=== PATIENT | male | born 1965 | race Caucasian/White ===

== ENCOUNTER 2024-08-01 08:22 | Outpatient (REF) | payer OTHER, SELFPAY ==
--- NOTE | ~2024-08-01 | XR_ITS ---
EXAMINATION: XR HIP 1 VIEW RIGHT WITH PELVIS HISTORY: M25.551 - Pain in right hip COMPARISON: There are no prior studies available for comparison. FINDINGS: A single AP view of the pelvis and two views of the right hip are submitted. Osseous mineralization is normal. There is no fracture or dislocation. The joint space is maintained. The soft tissues are unremarkable. XR/XR hip RT w PEL1V IMPRESSION: Unremarkable examination of the right hip. Electronically signed by: Tevin David MD 08/01/2024 10:08 AM EDT
== END 2024-08-01 08:23 | disposition home or self-care (01) ==
LOC: HO.HMGCX 08:22
PROVIDERS: Visit Provider Physician Assistant Medical
DX: M54.31 Sciatica, right side (principal); M25.551 Pain in right hip; M53.3 Sacrococcygeal disorders, not elsewhere classified
CPT/HCPCS: 73502; 96372; 99212; J1885

== ENCOUNTER 2024-08-01 08:22 | Outpatient (AMB) | payer OTHER, SELFPAY ==
[2024-08-01 09:14] VITALS: BP 142/94; PULSE 93; TEMP 36.8; O2SAT 97; BMI 34.3
--- NOTE | 2024-08-01 09:14 | AM.OFFWIN_ITS ---
Intake Vital Signs 08/01/24 09:14 Height 6 ft 1 in Weight 260 lb 6 oz BMI 34.3 BP 142/94 H Blood Pressure Location Lt brachial Position Sitting Pulse 93 Pulse Source Pulse Oximeter Temp 98.2 F Temp Source Oral Pulse Oximetry (%) 97 Oxygen Delivery Method Room Air Intake Visit Reasons: EP RT Hip pain, down to calf, top of foot Intake Note: Pt presents to the office today for c/o right hip pain down to his calf and the top of his foot x3 days ago. Pt states a few months ago he fell from a ladder but isnt sure if this is the reason he is in pain. Patient Tobacco Use Status: Never used Tobacco Allergies No Known Allergies Allergy (Verified 08/01/24 09:18) HPI HPI Comments History of Present Illness Details History of Present Illness - The patient is a 58-year-old male pres enting with acute pain post-fall of a ladder. - The patient reported a fall from a hei ght of approximately 10 feet, landing on the right hip. - Initial symptoms included leg numbness which then radiated from the right buttock down the right leg. He has a constant sharp pain in the right buttock and leg. He states that he has severe pain in the right hip. - Pain has recently developed and worsen ed in the right leg, described as severe and radiating, which aligns with prior sciatica episodes. - The patient has previously used tramad ol for sciatic pain with successful results. - There is awareness of gradual improvem ent in initial symptoms, but ongoing concern over the potential exacerbation of the sciatica due to the recent fall. - Physical activities are limited due to the pain, and concerns regarding further complications from the injury persist. - He states that he has increased pain w ith movement and he has not been able to sleep. - He denies back pain, saddle anesthesia , incontinence, abd pain, dysuria, or hematuria. Physical Exam General: Cooperative, healthy appearing, uncomfortable, no acute distress and well developed Respiratory: Normal respiratory effort and able to speak in complete sentences. Clear to auscultation bilaterally Cardiovascular: Regular rate and rhythm. Normal S1 and S2 GI: Normal to inspection. Soft to palpation and nontender : [employer] CVA tenderness noted. Skin: No rashes or lesions noted. No bruises noted. Neuro: Patient oriented x3. Sensation is intact. Extremities: Ambulates slowly. Unable to bend due to pain. TTP of the right SI joint, right lateral hip and pelvic brim. FROM of the right knee and ankle. Positive SLR noted on the right. No TTP of the calf, knee, or ankle. Strength is 4/5 on the right. Patient was informed and verbally consented to the use of an ambient scribe for clinic note documentation during this visit. [facility], LAT[facility] Surgical History (Updated 07/09/20 @ 12:48 by MALIKA Charles) History of surgical removal of pilonidal cyst History of appendectomy History of tonsillectomy Family History (Updated 07/09/20 @ 12:45 by MALIKA Charles) Mother No problems noted. Social History (Updated 07/09/20 @ 12:49 by MALIKA Charles) Alcohol intake: current Alcohol intake frequency: a few times a week Patient Tobacco Use Status: Never used Tobacco Review of Systems Const All systems reviewed & are unremarkable except as noted in HPI and below Physical Exam Vital Signs: Last Vital Signs Temp 98.2 F 08/01/24 09:14 Pulse 93 08/01/24 09:14 BP 142/94 H 08/01/24 09:14 Pulse Ox 97 08/01/24 09:14 Oxygen Delivery Method Room Air 08/01/24 09:14 BMI result Body Mass Index 34.3 Office Meds ketorolac 30 mg/mL (1 mL) injection solution Performing Provider: Jennifer Serrano PA-C Performing Location: [facility] Administered by: Jennifer Serrano PA-C on 08/01/24 16:36 Dose Route Admin Location Dispensed Lot Number Expiration Date [facility] [place] Vaccine Manager 30 mg IM 2 mL [id number] 09/19/24 96846-957-58 [employer] US Assessment & Plan Assessment & Plan (1) Sciatica of right side: Code(s): M54.31 - Sciatica, right side (2) Hip pain, right: Code(s): M25.551 - Pain in right hip Plan Most likely sciatica vs hip fracture vs contusion vs radiculopathy Plan - Obtain pelvic/hip x-ray to confirm no fractures from recent fall. - Administer tramadol 60 mg in the office today for sciatica-related pain relief, as previously effective. - Rest, ice and/or heat to the area for pain - Tizanidine 4 mg TID as needed - Prednisone burst - Meloxicam as needed for pain - activities as tolerated - follow up with PCP Orders: Orders XR hip RT w PEL1V Today M25.551 - Pain in right hip AMB Ketorolac Injection Today M53.3 - Sacrococcygeal disorders, not elsewhere classified Medications: New tizanidine 4 mg PO TID 7 days PRN 21 caps 0RF muscle spasticity prednisone 40 mg (2 x 20 mg) PO DAILY 5 days 10 tabs 0RF meloxicam 15 mg PO DAILY 15 tabs 0RF ketorolac 30 mg IM ONCE 1 mL 0RF pain M53.3 - Sacrococcygeal disorders, not elsewhere classified Coding Level of Care Code Est Pt Level 4 (19094) Diagnoses Sciatica of right side M54.31 Hip pain, right M25.551
== END 2024-08-01 10:08 | disposition home or self-care (01) ==
PROVIDERS: PCP Internal Medicine; Visit Provider Physician Assistant Medical
DX: M54.31 Sciatica, right side (principal); M25.551 Pain in right hip; M53.3 Sacrococcygeal disorders, not elsewhere classified

== ENCOUNTER → 2024-08-01 09:49 | Outpatient (BNV) | payer OTHER, SELFPAY | PROVIDERS: Visit Provider Radiology Diagnostic Radiology | DX: M25.551 Pain in right hip (principal) | CPT/HCPCS: 73502 ==

== ENCOUNTER 2024-12-25 11:17 | Outpatient (AMB) | payer OTHER, SELFPAY ==
[2024-12-25 11:23] VITALS: BP 140/100; PULSE 86; TEMP 36.2; O2SAT 97; BMI 35.4
--- NOTE | 2024-12-25 11:23 | A.OFFPC_ITS ---
Vital Signs 12/25/24 11:23 Height 6 ft 1 in Weight 268 lb 8 oz BMI 35.4 BP 140/100 H Blood Pressure Location Lt brachial Position Sitting Pulse 86 Pulse Source Pulse Oximeter Temp 97.1 F Temp Source Temporal Artery Scan Pulse Oximetry (%) 97 Oxygen Delivery Method Room Air Intake Visit Reasons: re-establish care Allergies No Known Allergies Allergy (Verified 12/25/24 11:23) Medication List - Last Reconciled 12/25/24 by Krys Clemente MD amlodipine 5 mg PO DAILY atorvastatin (Lipitor) 40 mg PO DAILY Tobacco use date assessed: 12/25/24 Dental Screening Dental Screen Date: 12/25/24 Did you have a dental visit in the last 12 months?: Yes Did you have a dental problem in the last 6 months where you did not have access to dental care?: No Was dental information given to patient?: Patient has dentist HPI HPI Comments History of Present Illness Details 59-year-old male presenting to [facility] with a new primary care physician and for refills of his blood pressure and cholesterol medications. His previous two primary care physicians retired, and he has been without his blood pressure and cholesterol medications for approximately two and a half weeks after refills were declined. The patient reports a history of insomnia. He has used [id number] Tylenol PM and marijuana edibles to aid with sleep. He declined anxiety medication in the past as he only wanted help with sleep. He has also tried melatonin, which he feels loses effectiveness over time. His reports that he snores, but he denies waking up choking. A previous ysician mentioned a sleep study for possible sleep apnea but did not follow through with the referral. The patient has a history of recurrent right-sided sciatica, occurring about twice a year, which he manages by seeking care at a walk-in center for an injection and muscle relaxers. The patient was advised to be evaluated for possible glaucoma. He is a former smoker, having quit cigarettes over 15 years ago, but currently uses marijuana periodically. He reports having had a colonoscopy in the past. He has a family history of high cholesterol. [facility] Surgical History History of surgical removal of pilonidal cyst History of appendectomy History of tonsillectomy Family History Mother No problems noted. 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 1. Little interest or pleasure in doing things: not at all 2. Feeling down, depressed, or hopeless: not at all 3. Trouble falling or staying asleep, or sleeping too much: more than half the days 4. Feeling tired or having little energy: more than half the days 5. Poor appetite or overeating: not at all 6. Feeling bad about yourself - or that you are a failure or have let yourself or your family down: not at all 7. Trouble concentrating on things, such as reading the newspaper or watching television: not at all 8. Moving or speaking so slowly that other people could have noticed. Or the opposite - being so fidgety or restless that you have been moving around a lot more than usual: not at all 9. Thoughts that you would be better off or of hurting yourself in some way: not at all Total score: 4 Depression Screening Interpretation: Positive Depression Screening Done: Yes Source: Developed by Drs. Tevin Vidal, Laurie Poe, Silver Samayoa and colleagues, with an educational srikanth from [employer]. Thrive Questionnaire Date Thrive assessed: 12/25/24 I am a: Patient What is your living situation today?: I have a steady place to live Within the past 12 months, did the food you bought not last and you didn't have the money to get more?: Never true Within the past 12 months, did you worry whether your food would run out before you got money to buy more?: Never true Do you have trouble paying for medicines?: No Do you have trouble getting transportation to medical appointments?: No Do you have trouble paying your heating and electricity bill?: No Do you have trouble taking care of your child, family member or friend?: No Do you have trouble with day-to-day activities such as bathing, preparing meals, shopping, managing finances, etc.?: No Are you currently unemployed and looking for a job?: Yes Are you interested in more education?: No Please select the resources that you would like help with: None Currently or been in a relationship where the following occur: No concerns reported THRIVE Score: 0 AUDIT C Alcohol Use Questionnaire (AUDIT-C) 1. How often do you have a drink containing alcohol?: 2-3 times a week 2. How many drinks containing alcohol do you have on a typical day when you are drinking?: 3 or 4 3. How often do you have six or more drinks on one occasion?: Never Total Score: 4 KANA-7 AMB Questionnaire KANA-7 Date KANA - 7 assessed: 12/25/24 Feeling nervous, anxious, or on edge: 1 = Several days Not being able to stop or control worryin = Not at all Worrying too much about different things: 0 = Not at all Trouble relaxin = Several days Being so restless that it is hard to sit still: 0 = Not at all Becoming easily annoyed or irritable: 0 = Not at all Feeling afraid as if something awful might happen: 0 = Not at all Total KANA-7 score (0-4 normal; 5-9 mild; 10-14 moderate; 15-21 severe): 2 Source: Developed by Drs. Tevin Vidal, Laurie Poe, Silver Samayoa and colleagues, with an educational srikanth from [employer]. Review of Systems Const Details: As per HPI. Physical exam (Primary Care) Vital Signs: Last Vital Signs Temp 97.1 F 12/25/24 11:23 Pulse 86 12/25/24 11:23 BP 140/100 H 12/25/24 11:23 Pulse Ox 97 12/25/24 11:23 Oxygen Delivery Method Room Air 12/25/24 11:23 BMI result Body Mass Index 35.4 Tobacco/Smoking Status: Tobacco use Status Tobacco use date assessed 12/25/24 12/25/24 11:33 Patient Tobacco Use Status Never used Tobacco 12/25/24 11:33 e-Cigarette/Vaping Use Never Used 12/25/24 11:33 PHQ-9: PHQ-9 Score PHQ-9: Total score 4 12/25/24 11:33 Depression Screening Interpretation: Positive Thrive Assessment: Date of Thrive Assessment Date Thrive assessed 12/25/24 12/25/24 11:33 Currently or been in a relationship where the following occur: No concerns reported Const Other: Pertinent findings are in BOLD GENERAL APPEARANCE NAD, activity normal for age, well developed/ well nourished, no cyanosis, pallor, or diaphoresis. EYES lids/conjunctiva normal. EARS/NOSE/THROAT Mucous membranes moist, nares normal, lips/teeth normal uvula midline without oral pharyngeal erythema, exudate or swelling TMs normal bilaterally. No lymphangitis/lymphedema. HEAD/NECK normocephalic atraumatic, no facial trauma, neck is supple. RESPIRATORY respiratory effort normal, speaks in full sentences, no tripod position, no accessory muscle use. Lungs clear to auscultation without rhonchi, wheezes, rales CARDIAC Regular rate and rhythm, no edema. ABDOMINAL Soft, ND/NT. No evidence of fluid wave. No pulsatile masses on exam, rebound tenderness, Goldsmith sign or pain over Mcburney's point. MUSCLES/EXTREMITIES No abnormal range of motion, no swelling. SKIN Warm, pink and dry. No rashes, dermatoses, petechiae or lesions. NEUROLOGICAL Speech is clear and appropriate. Normal level of consciousness. Gait and coordination are normal. 5/5 strength in all extremities. PSYCH Normal mood and affect. Judgement/competence is appropriate Coding Level of Care Code New Pt Level 4 (22442) New Pt Prev Care 40-64y(03061) Diagnoses Healthcare maintenance Z00.00 Tobacco use disorder F17.200 Primary hypertension I10 Hypertension type: primary hypertension Chronic right-sided low back pain with right-sided sciatica M54.41; G89.29 Chronicity: chronic Back pain laterality: right Sciatica presence: with sciatica Sciatica laterality: sciatica of right side Snoring R06.83 Hyperlipidemia, unspecified hyperlipidemia type E78.5 Hyperlipidemia type: unspecified Time Spent (min) 40 Assessment & Plan Assessment & Plan (1) Healthcare maintenance: Code(s): Z00.00 - Encounter for general adult medical examination without abnormal findings Category: Medical Plan: CBC, CMP, Lipid panel, A1C, TSH w T4, vit D. Ordered today. Shingles 2 doses when >50 yo. Discuss next visit. COVID: two doses. Declined. Pneumococcal: >50 yo. 18-49 with CKD, lung disease, weakened immune system, Heart disease, DM, cochlear implant. Not indicated. Flu vaccine: Declined. Tdap: every 10 years. Declined. Colonoscopy: 45-75. Ordered. AAA: 65 -75. Or[address] CT lun - 80. Not indicated. PSA: 50 -70 every two years. HIV: Ordered. HCV: Ordered. (2) Tobacco use disorder: Code(s): F17.200 - Nicotine dependence, unspecified, uncomplicated Category: Medical Plan: AAA US ordered. (3) Hypertension: Code(s): I10 - Essential (primary) hypertension Category: Medical Qualifiers: Hypertension type: primary hypertension Qualified Code(s): I10 - Essential (primary) hypertension Plan: - The patient's blood pressure is elevated today. - He has been without his blood pressure medication for about two and a half weeks. - His previous medication, metoprolol, is not considered a first-line agent. - Start amlodipine 5 mg daily for blood pressure control. - Ordered fasting labs to monitor. - Sleep study to rule out MAGGY as reason of the patient's HTN. (4) Low back pain: Code(s): M54.50 - Low back pain, unspecified Category: Medical Qualifiers: Chronicity: chronic Back pain laterality: right Sciatica presence: with sciatica Sciatica laterality: sciatica of right side Qualified Code(s): M54.41 - Lumbago with sciatica, right side; G89.29 - Other chronic pain Plan: Symptoms are intermittent. Advised the patient to use OTC medications when he develops symptoms. (5) Snoring: Code(s): R06.83 - Snoring Category: Medical Plan: - The patient reports chronic insomnia and snoring, and has hypertension, which raises suspicion for obstructive sleep apnea. - He has self-treated with Tylenol PM, marijuana edibles, and melatonin. - A referral will be placed to Sleep Medicine for evaluation and a sleep study. - The plan is to reassess his sleep in six months after the specialist evaluation. (6) Hyperlipidemia: Code(s): E78.5 - Hyperlipidemia, unspecified Category: Medical Qualifiers: Hyperlipidemia type: unspecified Qualified Code(s): E78.5 - Hyperlipidemia, unspecified Plan: - The patient was previously on cholesterol medication and has a family history of high cholesterol. - Will restart medication for cholesterol management Atorvastatin 20 mg Daily. - Ordered a fasting lipid panel. Plan I discussed with the patient that his blood pressure is elevated and prescribed amlodipine 5 mg daily, explaining that his previous medication, metoprolol, is not a first-line therapy. I have ordered fasting labs to check his overall h ealth, including cholesterol levels. Due to his symptoms of snoring in the setting of hypertension, I recommended a referral to Sleep Medicine for a sleep study to evaluate for obstructive sleep apnea, which he agreed to. We discussed several health maintenance items. I have placed referrals for a screening colonoscopy and an abdominal ultrasound to screen for an aortic aneurysm, given his history of smoking. I offered shingles, influenza, and tetanus vaccines, but the patient wished to defer these until a future visit. We had a detailed conversation about diet and lifestyle changes to improve his health, focusing on reducing sugars, bread, and red meat. I have scheduled a follow-up appointment in six months to review his progress and lab results. Orders: Orders Comprehensive Met. Panel Today Z00.00 - Encounter for general adult medical examination without abnormal findings Vitamin D 25-OH Total Today Z00.00 - Encounter for general adult medical examination without abnormal findings Hepatitis C Antibody Reflex Today Z00.00 - Encounter for general adult medical examination without abnormal findings HIV Ab/Ag Today Z00.00 - Encounter for general adult medical examination without abnormal findings US abdominal aortic aneurysm Today F17.200 - Nicotine dependence, unspecified, uncomplicated Complete Blood Count no Diff Today Z00.00 - Encounter for general adult medical examination without abnormal findings Hemoglobin A1c Today Z00.00 - Encounter for general adult medical examination without abnormal findings Lipid Panel Today Z00.00 - Encounter for general adult medical examination without abnormal findings Vitamin B12 and Folate Today D64.9 - Anemia, unspecified, Z00.00 - Encounter for general adult medical examination without abnormal findings TSH reflex Free T4 Today Z00.00 - Encounter for general adult medical exami nation without abnormal findings Prostate Specific Antigen Today Z00.00 - Encounter for general adult medical examination without abnormal findings Referrals Open Access Screening Colonoscopy Referral Z12.11 - Encounter for screening for malignant neoplasm of colon, Z12.12 - Encounter for screening for malignant neoplasm of rectum Sleep Medicine Referral I10 - Essential (primary) hypertension, R06.83 - Snoring Medications: New atorvastatin (Lipitor) 40 mg PO DAILY 90 tabs 3RF amlodipine 5 mg PO DAILY 90 tabs 3RF
== END 2024-12-25 12:12 | disposition home or self-care (01) ==
LOC: HO.HMCH 11:18
PROVIDERS: PCP Internal Medicine; Visit Provider Internal Medicine
DX: I10 Essential (primary) hypertension (principal); M54.41 Lumbago with sciatica, right side; R06.83 Snoring; E78.5 Hyperlipidemia, unspecified; F17.200 Nicotine dependence, unspecified, uncomplicated; G89.29 Other chronic pain

== ENCOUNTER → 2024-12-25 11:17 | Outpatient (BNVA) | payer OTHER, SELFPAY | PROVIDERS: PCP Internal Medicine; Visit Provider Internal Medicine | DX: Z00.00 Encounter for general adult medical examination without abnormal findings (principal); R06.83 Snoring; G47.00 Insomnia, unspecified; M54.41 Lumbago with sciatica, right side; I10 Essential (primary) hypertension; G89.29 Other chronic pain; E78.5 Hyperlipidemia, unspecified; Z87.891 Personal history of nicotine dependence | CPT/HCPCS: 99202 ==